=== PATIENT | male | born 1965 | race Native Hawaiian/Other Pacific Islander ===

== ENCOUNTER 2019-06-07 14:46 | Outpatient (CLI) | payer BC ==
[~2019-06-07 14:46] MED LIST: BENZ100C8 PO; LEVO500T PO
== END 2019-06-07 22:02 | disposition home or self-care (01) ==
LOC: RAD 14:46
DX: J20.9 Acute bronchitis, unspecified (principal); M25.562 Pain in left knee

== ENCOUNTER 2020-02-14 09:07 | Outpatient (CLI) | payer BC | END 2020-02-14 20:15 | disposition home or self-care (01) | LOC: RAD 09:07 | DX: E78.2 Mixed hyperlipidemia (principal); M10.09 Idiopathic gout, multiple sites; M17.12 Unilateral primary osteoarthritis, left knee; R35.1 Nocturia; Z68.29 Body mass index [BMI] 29.0-29.9, adult ==

== ENCOUNTER 2021-01-30 09:00 | Outpatient (CLI) | payer BC ==
[2021-01-30 09:20] LABS: PLATELET COUNT 204 K/uL (142-355)
[2021-01-30 10:22] LABS: POTASSIUM 4.2 mmol/L (3.6-5.2)
== END 2021-01-30 12:00 | disposition home or self-care (01) ==
LOC: EDSTATUS 09:00 → OR 09:00 → LABW 09:00 → OR 02-06 13:00 → EDSTATUS 03-20 13:00 → OR 03-20 14:00
PROVIDERS: ATTEND Internal Medicine Gastroenterology
DX: Z12.11 Encounter for screening for malignant neoplasm of colon (principal); Z80.0 Family history of malignant neoplasm of digestive organs; Z01.812 Encounter for preprocedural laboratory examination; Z20.822 Contact with and (suspected) exposure to COVID-19
CPT/HCPCS: 80053; 85027; 87635; U0003